=== PATIENT | female | born 1985 | race Two or more races ===

== ENCOUNTER 2018-11-18 21:10 | Emergency (ER) | payer MEDICAID, OTHER ==
[~2018-11-18] VITALS: Ht 165.1 cm; Wt 70.3 kg
[~2018-11-18 21:10] MED LIST: NKM
[2018-11-18 21:30] VITALS: BP 118/61
--- NOTE | 2018-11-18 21:30 | NUR ---
ER Nurse Note: Pt came from home c/o dog bite at 1930. Pt stated her dog was agitated and bit her LT hand/wrist. LT wrist has bite corona; bleeding from site. Pt able to move hand. 10/10 throbbing pain. Pt stated the vaccinations are not up to date. Will continue to montior.
[2018-11-18] MEDS ORDERED: Tetanus/Diptheria/Pertussis IM ONE (21:45)
[2018-11-18] MEDS ORDERED: Augmentin 875mg Tab ORAL ONE (21:45)
[2018-11-18] MEDS ORDERED: HYDROcodone/Acetamin 5/325 tab ORAL ONE (21:45)
--- NOTE | 2018-11-18 21:47 | Emergency Room Report ---
History of Present Illness General Chief Complaint: Animal Bite Source: Patient Present Illness HPI HPI: 31-year-old [id number] otherwise healthy female presents for evaluation of dog bite on the left hand. Her dog was ran into the street and was hit by a car she went to go pick him up and he accidentally bit the dorsum of her left hand in 3 places. No significant bleeding. She cleaned it that she could with soap and water at home. Has full range of motion in the hand and wrist. Notes some tingling over the hand but otherwise has full function. Cannot recall last tetanus. No recent antibiotic use. The dog is fully vaccinated. PMH: Denies PSH: section Allergies: Denies Social Hx: Denies drug, alcohol or tobacco use Allergies: Coded Allergies: No Known Allergies (Unverified , 09/08/14) Patient History Last Menstrual Period: 11/10 Now: No Nursing Documentation-PMH Past Medical History: No Stated History Physical Exam Vital Signs Date Time Temp Pulse Resp B/P (MAP) Pulse Ox O2 Delivery O2 Flow Rate FiO2 11/18/18 21:21 98.4 78 18 118/61 (80) 100 Room Air Full flexion-extension of all digits. Full flexion-extension of the wrist. Sensation over the radial and ulnar aspects of all digits intact. Small puncture wounds over the dorsum of the hand at the base of the thumb and of the base of the second metacarpal. Hemostatic. Medical Decision Making Diagnostic Impression: Primary Impression: Dog bite of hand ER Course 33-year-old female presents for evaluation of dog bite to the left hand. While the bites themselves appear superficial and the patient had already cleaned out we will thoroughly scrub the area after providing pain medication and the patient will be started on Augmentin. Tetanus was updated today. We discussed very strict return precautions as well as need for follow-up with her PMD which she states she can arrange very quickly. We also provided names and numbers of clinics in the area should she be unable to follow-up with her PMD. She understands and agrees with this treatment plan will be discharged home. Please note that this report is being documented using [employer] technology. This can lead to erroneous entry secondary to incorrect interpretation by the dictating instrument. Last Vital Signs Date Time Temp Pulse Resp B/P (MAP) Pulse Ox O2 Delivery O2 Flow Rate FiO2 11/18/18 21:21 98.4 78 18 118/61 (80) 100 Room Air Disposition: HOME, SELF-CARE Condition: Improved Scripts Amoxicillin/Potassium Clav 875-125* (AUGMENTIN 875-125 TABLET*) 1 Each Tablet 1 TAB ORAL TWICE A DAY for 10 Days, #20 TAB Prov: Dominic Garcias MD 11/18/18 Dominic Garcias MD Nov 18, 2018 21:47
[2018-11-18] MEDS ORDERED: AUGMENTIN 875-1 EAC1 ORAL (22:42)
[2018-11-18 22:46] VITALS: BP 118/61
--- NOTE | 2018-11-18 22:46 | NUR ---
ER Nurse Note: Pt seen, treated, medically cleared for discharge by ERMD. Discharge instuctions and prescriptions given with repeat verbalization by pt. Emphasized to follow up with primay care provider; take whole course of medication. Explained each medication. All orders completed per ERMD orders. Pt a&ox4, VSS, no signs of distress. ID band removed. LT wrist washed with NS and cleaned with iodine. Animal Bite Report Form completed. All questions answered per pt's questions. Pt left with all belongings, left with own transportation.
== END 2018-11-18 22:45 | disposition home or self-care (01) ==
LOC: EMR 22:01
DX: S61.432A Puncture wound without foreign body of left hand, initial encounter (principal); W54.0XXA Bitten by dog, initial encounter; Y92.410 Unspecified street and highway as the place of occurrence of the external cause; Z23 Encounter for immunization
CPT/HCPCS: 90471; 90715; 99283